=== PATIENT | female | born 1940 | race Caucasian/White ===

== ENCOUNTER → 2017-01-21 | Outpatient (CLI) | payer MEDICARE, OTHER ==
[~2017-01-21] MED LIST: BENTYL20 MG PO; CALCIUM CARBON600 MG PO; D3-20002000 UNIT PO; FEOSOL325 MG PO; FLORASTOR250 MG PO; IMODIUM2 MG PO; K-TAB ER20 MEQ PO; LASIX40 MG PO; MOBIC15 MG PO; OXYGEN M-15 INH; PRESERVISION A1 EAC2 PO; PROZAC20 MG PO; TYLENOL EXTRA500 MG PO; XANAX0.5 MG PO; XARELTO20 MG PO; ZYRTEC10 MG PO
== END | disposition disaster alternative care site (69) ==
LOC: GBCOE 13:18
DX: Z12.31 Encounter for screening mammogram for malignant neoplasm of breast (principal)
CPT/HCPCS: G0202